=== PATIENT | male | born 1970 | race Caucasian/White ===

== ENCOUNTER 2019-01-12 21:36 | Emergency (ER) | payer OTHER ==
[~2019-01-12] VITALS: Ht 172.7 cm; Wt 112.4 kg
[~2019-01-12 21:36] MED LIST: CEPH-443 PO; HYDR-4011 PO; IBUP-1542 PO
[2019-01-12 21:46] VITALS: Ht 172.7 cm; Wt 112.4 kg
[2019-01-12] MEDS ORDERED: HYDROCODONE/APAP (5/325) TAB PO STA (22:17)
[2019-01-12] MEDS ORDERED: DIPHTH/TET/ACEL PERTUSS (ADULT) 0.5 ML VIAL IM* ONE (22:30)
[2019-01-12] MEDS ORDERED: CEFAZOLIN 1 GM INJ IM ONE (22:30)
[2019-01-13 01:37] VITALS: BP 118/77; PULSE 88; RESP 18
--- NOTE | 2019-01-13 05:12 | ERD ---
ER Documentation Chief Complaint Chief Complaint RT 3RD FINGER LACERATION WHILE WORKING, NO TETANUS SHOT IN PAST 5 YEARS HPI This is a very pleasant 48-year-old male with history of diabetes who presents to the ED with an avulsion laceration to the tip of his right third finger sustained just prior to arrival. Patient states he was building a cabinet at home when he accidentally used a saw that cut through his nail and part of this finger. Patient reports pain around the avulsed site. He has full range of motion of his fingers. He denies any numbness or tingling. Denies any other injuries. Does not know when his last tetanus was given. He is right-hand dominant. ROS All systems reviewed and are negative except as per history of present illness. Medications Home Meds Active Scripts Ibuprofen* (Motrin*) 600 Mg Tab, 600 MG PO Q6H PRN for PAIN AND OR ELEVATED TEMP, #30 TAB Prov:DISHIGRIKIANMALVINPYUR N PA-C 01/13/19 Hydrocodone/Acetaminophen ([place] 5-325 Tablet) 1 Each Tablet, 1 TAB PO Q6H PRN for PAIN, #10 TAB Prov:DISHIGRIKIANZEPYUR N PA-C 01/13/19 Cephalexin* (Keflex*) 500 Mg Capsule, 500 MG PO QID for 5 Days, CAP Prov:DISHIGRIKIAN,ZEPYUR N PA-C 01/13/19 Allergies Allergies: Coded Allergies: No Known Allergy (Unverified , 01/12/19) PMhx/Soc Medical and Surgical Hx: pt denies Medical Hx History of Surgery: Yes Anesthesia Reaction: No Hx Neurological Disorder: No Hx Respiratory Disorders: No Hx Cardiac Disorders: No Hx Psychiatric Problems: No Hx Miscellaneous Medical Probl: No Hx Alcohol Use: Yes (on occasion) Hx Substance Use: No Hx Tobacco Use: Yes (on occasion) Smoking Status: Current some day smoker Physical Exam Vitals Vital Signs Date Temp Pulse Resp B/P (MAP) Pulse Ox O2 O2 Flow FiO2 Time Delivery Rate 01/13/19 98.0 88 18 118/77 98 Room Air 01:37 (91) 01/12/19 98.5 83 16 154/97 97 21:46 (116) Physical Exam Const: No acute distress Head: Atraumatic Eyes: Normal Conjunctiva Skin: No petechiae or rashes Ext: + maceration and avulsion of the distal tip of the right third digit, no visible nail plate or cuticle. Full flexion and extension of the third digit. Sensation grossly intact. Neur: Awake and alert Psych: Normal Mood and Affect Results 24 hrs Current Medications Medications Dose Sig/Raúl Start Time Status Last (Trade) Ordered Route PRN Stop Time Admin Dose Reason Admin Diphtheria/ 0.5 ml ONCE ONCE 01/12/19 DC 01/12/19 Tetanus/Acell IM* 22:30 22:36 Pertussis 01/12/19 22:31 (Adacel) 1 tab ONCE STAT 01/12/19 DC 01/12/19 Acetaminophen PO 22:17 22:35 / 01/12/19 22:22 Hydrocodone Bitart ([place] (5/325)) Cefazolin 1 gm ONCE ONCE 01/12/19 DC 01/12/19 Sodium IM 22:30 22:35 (Ancef) 01/12/19 22:31 Procedures/MDM LABS & DIAGNOSTIC IMAGING: PROCEDURE: XR Right third finger CLINICAL INDICATION: Trauma with pain, laceration TECHNIQUE: AP, oblique and lateral views of the right third finger were obtained. COMPARISON: No prior studies are available for comparison. FINDINGS: There is a comminuted fracture of the tuft of the right distal phalanx with small bone fragments in the soft tissues. The overlying soft tissues are interrupted. Overall bony alignment is normal. The proximal middle phalanges are unremarkable. IMPRESSION: 1. Soft tissue and bony a injury to the distal right third finger with comminuted tuft fracture. PROCEDURES: Laceration Repair by me: Anesthesia: 1% lidocaine digital block Location: Right third digit Tendon/Joint/Nerves: No injury Foreign body: None detected after copious irrigation and exploration Technique: 4-0 vicryl x 10 and 4-0 eithilon x 3 Simple Interrupted Sutures Complexity: subcutaneous sutures to control bleeding w/ mucosal repair/edge excisio ED COURSE: The patient was given tetanus immunization update, [place], 1 g of Ancef The medication was well tolerated and the patient had market improvement in symptoms. The patient remained stable throughout ED course. MEDICAL DECISION MAKIN-year-old diabetic male presents with a macerated laceration to the distal tip of his right third finger. X-ray of his finger revealed a comminuted tuft fracture. He was given 1 g of Ancef here, tetanus also updated. Absorbable sutures were placed to achieve hemostasis around the nailbed area. Wound was covered with a nonadherent sterile gauze, and placed in a finger splint. He was given referral to hand clinic and told to follow-up with his primary care provider early next week. He has no evidence of neurovascular injury or foreign body. He was discharged with referral list and outpatient antibiotics. Strict return precautions were discussed. Case was discussed with my supervising doc, Dr. Lynn who agreed with my plan of care and assessment. PRESCRIPTIONS: keflex SPECIALIST FOLLOW UP RECOMMENDED: None Patient has been advised to follow up with primary care in 1-2 days. Departure Diagnosis: Primary Impression: Fracture of distal phalanx of finger Encounter type: initial encounter Finger: middle finger Fracture type: open Fracture alignment: nondisplaced Laterality: right Qualified Codes: S62.662B - Nondisplaced fracture of distal phalanx of right middle finger, initial encounter for open fracture Condition: Stable Patient Instructions: Fracture, Finger (Open) Referrals: [facility] Additional Instructions: Keep your finger in a splint until you are seen by the hand specialist. You must see them within the next week. Some of the sutures can be removed in about 10 days. The rest of it was self-absorbed. Take ibuprofen or the [place] as needed for pain. You must finish the entire course of antibiotics. Return here for any new or worsening symptoms. DAVID MILLS PA-C Jan 13, 2019 05:12
== END 2019-01-13 01:55 | disposition home or self-care (01) ==
LOC: FTE 21:36
DX: S62.662B Nondisplaced fracture of distal phalanx of right middle finger, initial encounter for open fracture (principal); E11.9 Type 2 diabetes mellitus without complications; F17.210 Nicotine dependence, cigarettes, uncomplicated; W31.1XXA Contact with metalworking machines, initial encounter; Y92.89 Other specified places as the place of occurrence of the external cause; Z23 Encounter for immunization
CPT/HCPCS: 12031; 73140; 90471; 90715; 96372; 99284; J0690